=== PATIENT | male | born 2000 | race Caucasian/White ===

== ENCOUNTER 2021-02-28 15:04 | Emergency (ER) | payer OTHER, SELFPAY ==
--- NOTE | 2021-02-28 15:10 | ED.GENADULT ---
HPI - General Adult General Chief complaint: Dental/Oral Stated complaint: facial swelling Time Seen by Provider: 02/28/21 15:15 Source: patient and RN notes reviewed Mode of arrival: ambulatory Limitations: no limitations History of Present Illness HPI narrative: 20-year-old male presents with complaints of bilateral jaw pain and swelling for the past 11 hours. Ernesto reports awakening this morning with jaw pain, increasing pain throughout the day with swelling. Ice, Naproxen, and Tylenol with little to know relief. Denies any drainage. No fever. No neck swelling. No limitation with speaking or swallowing. Has history of TMJ. No dental or facial trauma. No oral lesions or dental complaints. Exacerbating factors consist of chewing and eating. No relieving factors. Intermittent nausea without vomiting and abdominal pain. Tolerating liquids well. The patient reports he was diagnosed with COVID-20 April 2020. The patient reports he received 2 [employer] COVID-19 vaccines. The patient reports he is not waiting for the results of a COVID-19 lab test. The patient reports he do not have chills, weakness, or fatigue. The patient reports he do not have a new or worsening cough or shortness of breath. Denies chest pain. The patient reports he do not have any rhinorrhea, congestion, loss of taste or smell, sore throat, and diarrhea. Tolerating po intake well. Denies recent traveling. Denies concerns for COVID-19 or exposures been home with limited outdoor exposure except for essential household needs, work, and return home. At this time, patient is not suspected of having COVID-19. Some parts of this dictation were generated by voice recognition software and may contain typographical and/or grammatical inaccuracies. Related Data Home Medications Medication Instructions Recorded Confirmed sertraline [Zoloft] 100 mg PO DAILY 02/28/21 02/28/21 Allergies Allergy/AdvReac Type Severity Reaction Status Date / Time No Known Allergies Allergy Verified 02/28/21 15:10 Review of Systems Review of Systems: Narrative: CONSTITUTIONAL: Denies fever, chills, sweats. EYES: Denies visual changes, redness, discharge. ENT: Denies rhinorrhea, congestion, sore throat, otalgia. Complains of bilateral jaw pain and swelling. CARDIOVASCULAR: Denies chest pain, palpitations, edema. RESPIRATORY: Denies dyspnea, wheezing, cough. GASTROINTESTINAL: Denies abdominal pain, nausea, vomiting, diarrhea. SKIN: Denies rash or itching. MUSCULOSKELETAL: Denies acute back pain, joint pain, or myalgia. NEUROLOGIC: Denies numbness or focal weakness. PSYCHIATRIC: Denies anxiety or depression. All systems reviewed & are unremarkable except as noted in HPI and below. [facility] Past Medical History Medical History (Updated 03/01/21 @ 00:01 by Andrew Lama) Anxiety Depression TMJ (temporomandibular joint syndrome) Surgical History Surgical History (Updated 02/28/21 @ 15:29 by CHRISTINE Alarcon) No significant past surgical history Family History Family History (Updated 02/28/21 @ 15:31 by CHRISTINE Alarcon) Father Hypertension Mother Alive and well Social History Social History (Updated 02/28/21 @ 15:31 by CHRISTINE Alarcon) Smoking status: Light tobacco smoker Tobacco type: cigarettes Second hand tobacco smoke exposure: No Alcohol intake: current Substance use: never Living arrangements: with family Occupation/Education: occupation Gender identity (if verbalized by the patient): Male Comments At time of signature, agree with nurse past medical, surgical, social, and family history. There is no relevant family history pertinent to the presenting complaint. Exam Narrative: Exam Narrative: GENERAL: This is a well-nourished, well-developed patient, in no apparent distress. Talks in full sentences ans ambulates with steady gait without dyspnea. HEAD: Normocephalic, atraumatic. EYES: PERRL. Sclera
[2021-02-28 15:11] VITALS: BP 149/86; PULSE 84; RESP 18; TEMP 37.2; O2SAT 100
== END 2021-02-28 15:33 | disposition home or self-care (01) ==
PROVIDERS: Emergency Provider Nurse Practitioner Family
DX: M26.603 Bilateral temporomandibular joint disorder, unspecified (principal); R68.84 Jaw pain; R11.0 Nausea; F17.210 Nicotine dependence, cigarettes, uncomplicated; F41.9 Anxiety disorder, unspecified; F32.9 Major depressive disorder, single episode, unspecified
CPT/HCPCS: 99213; G0463